=== PATIENT | female | born 2000 | race Caucasian/White ===

== ENCOUNTER 2019-05-13 12:46 | Observation (INO) | payer OTHER ==
[~2019-05-13] VITALS: Ht 162.6 cm; Wt 55.8 kg
[2019-05-13] MEDS ORDERED: DEXAMETHASONE 4 MG/ML, 1ML IV ONE (13:30)
[2019-05-13] MEDS ORDERED: SODIUM CHLORIDE FLUSH 10ML SYR IVF ONE (13:30)
[2019-05-13] MEDS ORDERED: AMPICILLIN/SULBACTAM 3 GM in SODIUM CHLORIDE 0.9% 100 ML IV ONE (13:30)
[2019-05-13] MEDS ORDERED: DEXAMETHASONE 4 MG/ML, 5ML ONE (13:55)
[2019-05-13 13:57] LABS: BASOPHILS # (AUTO) 0.02 x10^3/uL (0-0.3); BASOPHILS % (AUTO) 0 % (0-1); EOSINOPHILS # (AUTO) 0.01 x10^3/uL (0-0.8); EOSINOPHILS % (AUTO) 0 % (1-7); LYMPHOCYTES # (AUTO) 1.38 x10^3/uL (1-6.1); LYMPHOCYTES % (AUTO) 10 % (22-44); MD NO; MEAN CORPUSCULAR HEMOGLOBIN 29.9 pg (27.0-34.8); MEAN CORPUSCULAR HGB CONC 33.1 g/dL (32.4-35.8); MEAN CORPUSCULAR VOLUME 90.2 fL (80-100); MEAN PLATELET VOLUME 8.1 fL (7.4-10.4); MONOCYTES # (AUTO) 0.87 x10^3/uL (0-1.4); MONOCYTES % (AUTO) 6 % (2-9); NEUTROPHILS # (AUTO) 11.49 x10^3/uL (1.8-8.0); NEUTROPHILS % (AUTO) 83 % (42-75); PLATELET COUNT 374 x10^3/uL (130-400); RED BLOOD COUNT 4.68 x10^6/uL (3.82-5.3); RED CELL DISTRIBUTION WIDTH 12.1 % (9.6-15.2)
--- NOTE | 2019-05-13 13:59 | NUR ---
PT A&OX4, RESP EVEN & UNLABORED, LIMITING SPEAKING DUE TO DENTAL PAIN, SKIN WNL. C/O RT LOWER JAW PAIN X 3 DAYS. ADVIL LAST NOC. LAST ORAL INTAKE: 1999 YESTERDAY. DENTAL EXTRACTION PER DR MALLORY YING PENDING. PT'S FRIEND IN ROOM.
--- NOTE | 2019-05-13 14:03 | NUR ---
PT FEELING FAINT. BED PLACED IN [place] POSITION W/ SIDE RAILS UP X2, CALL LIGHT W/IN REACH. FRIEND IN ROOM.
[2019-05-13 14:11] LABS: ALBUMIN 4.1 g/dL (3.4-5.0); ANION GAP 9 mmol/L (5-15); CALCIUM 9.3 mg/dL (8.5-10.1); CHLORIDE 106 mmol/L (98-107); CREATININE 0.76 mg/dL (0.55-1.02)
--- NOTE | 2019-05-13 14:14 | NUR ---
DECADRON GIVEN PER EMAR. MELIDA CAMPOS, INFUSING VIA DIAL-A-FLOW. IV SITE PATENT.
[2019-05-13] MEDS ORDERED: PLEASE ENTER ALLERGIES MC SCH (14:30)
[2019-05-13] MEDS ORDERED: SODIUM CHLORIDE 0.9% 1,000ML IVBOLUS ONE (14:30)
[2019-05-13] MEDS ORDERED: OMNIPAQUE 350 MG/ML, 100ML BOTTLE ONE (15:16)
--- NOTE | 2019-05-13 16:14 | NUR ---
CALLED FLOOR TO GIVE REPORT; RECEIVING RN NOT AVAILABLE; CUFF TURNER WILL ASK RN TO CALL ED FOR REPORT.
--- NOTE | 2019-05-13 16:17 | NUR ---
PT REPORT TO BREAK RN: SHAYY. PT CARE TRANSFERRED.
--- NOTE | 2019-05-13 16:45 | NUR ---
TASK RN: IRLANDA RPT TO [facility]S.
[2019-05-13] MEDS ORDERED: EPINEPHRINE 1 MG/ML, 1ML ONE (17:00)
[2019-05-13] MEDS ORDERED: BUPIVACAINE/PF 0.25% ONE (17:00)
[2019-05-13] MEDS ORDERED: LIDOCAINE 1%-EPI 1:100K, 20ML ONE (17:01)
[2019-05-13 17:24] VITALS: BP 123/70
[2019-05-13 17:35] VITALS: BP 123/70
[2019-05-13] MEDS ORDERED: MIDAZOLAM 1 MG/ML, 2ML ONE (18:11)
[2019-05-13] MEDS ORDERED: FENTANYL PF 100 MCG/2ML ONE ×3 (18:11→20:17)
[2019-05-13] MEDS ORDERED: LIDOCAINE-MPF 2% ,5ML ONE (18:13)
[2019-05-13] MEDS ORDERED: HYDROmorphone 2 MG/ML, 1ML IVPush PRN (19:00)
[2019-05-13] MEDS ORDERED: ALBUTEROL/IPRATROPIUM 2.5MG/0.5MG, 3 ML NPPB PRN (19:00)
[2019-05-13] MEDS ORDERED: MEPERIDINE/PF 25MG/ML,1ML IVPush PRN (19:00)
[2019-05-13] MEDS ORDERED: OXYcodone 5 MG/5 ML ORAL.SOL UDC PO PRN (19:00)
[2019-05-13] MEDS ORDERED: MIDAZOLAM 1 MG/ML, 2ML IV PRN (19:00)
[2019-05-13] MEDS ORDERED: FENTANYL PF 100 MCG/2ML IV PRN (19:00)
[2019-05-13] MEDS ORDERED: ACETAMINOPHEN 325 MG TABLET PO PRN (19:00)
[2019-05-13] MEDS ORDERED: PROMETHAZINE 25 MG/ML, 1ML IV PRN (19:00)
[2019-05-13] MEDS ORDERED: ROCURONIUM 10MG/ML,5ML ONE (19:27)
[2019-05-13] MEDS ORDERED: DEXAMETHASONE 4 MG/ML, 1ML ONE (19:27)
[2019-05-13] MEDS ORDERED: ONDANSETRON 2MG/ML, 2ML ONE (19:27)
[2019-05-13] MEDS ORDERED: PROPOFOL 10 MG/ML, 20ML ONE (19:27)
[2019-05-13] MEDS ORDERED: SUCCINYLCHOLINE 20 MG/ML, 10ML ONE (19:27)
[2019-05-13] MEDS ORDERED: MEPERIDINE/PF 25MG/ML,1ML ONE (20:07)
[2019-05-13] MEDS ORDERED: OXYcodone 5 MG/5 ML ORAL.SOL UDC ONE (20:17)
[2019-05-13] MEDS ORDERED: ACETAMINOPHEN 650 MG/20.3 ML UDC ONE (20:17)
[2019-05-13] MEDS ORDERED: CHLORHEXIDINE 15 ML UDC PO SCH (21:30)
[2019-05-13] MEDS ORDERED: DEXAMETHASONE 10 MG in SODIUM CHLORIDE 0.9% 50 ML IV SCH (21:30)
[2019-05-13] MEDS: AMPICILLIN/SULBACTAM 3 GM in SODIUM CHLORIDE 0.9% 100 ML IV SCH (22:34)
[2019-05-14 00:57] VITALS: BP 94/51
[2019-05-14] MEDS: DEXAMETHASONE 8 MG in SODIUM CHLORIDE 0.9% 50 ML IV SCH ×2 (05:52→13:56)
[2019-05-14] MEDS: AMPICILLIN/SULBACTAM 3 GM in SODIUM CHLORIDE 0.9% 100 ML IV SCH ×2 (06:32→14:33)
[2019-05-14 06:54] VITALS: BP 92/51
[2019-05-14] MEDS ORDERED: CHLORHEXIDINE 15 ML UDC PO SCH (09:00)
[2019-05-14 13:11] VITALS: BP 103/61
[2019-05-14] MEDS ORDERED: HYDR-3240 PO (14:56)
[2019-05-14] MEDS ORDERED: IBUP200T49 PO (14:57)
[2019-05-14] MEDS ORDERED: AMOX1TAB64 PO (14:58)
[2019-05-14] MEDS ORDERED: CHLO15MO PO (15:00)
[2019-05-14] MEDS ORDERED: ONDA4TAB7 PO (15:01)
== END 2019-05-14 15:36 | disposition home or self-care (01) ==
LOC: ED 13:34 → EDIP 15:22 → 3N 16:56 → DCLOUNGE 05-14 15:29
PROVIDERS: ADMIT Dentist; ATTEND Dentist
DX: J36 Peritonsillar abscess (principal); K01.1 Impacted teeth; M27.2 Inflammatory conditions of jaws
CPT/HCPCS: 36415; 41899; 42700; 70487; 80048; 82040; 84703; 85025; 87070; 87075; 87205; 96365; 96366; 96367; 96375; 99284; G0378; J0171; J0295; J0330; J1100; J2175; J2250; J2405; J2704; J3010; J3490; J7030; Q9967